=== PATIENT | female | born 1990 | race Caucasian/White ===

== ENCOUNTER 2017-05-02 10:16 | Emergency (ER) | payer MEDICAID, MEDICARE ==
[~2017-05-02] VITALS: Ht 154.9 cm; Wt 135.2 kg
[~2017-05-02 10:16] MED LIST: MEDR10TA9 PO; PREN-115 PO
[2017-05-02] MEDS ORDERED: WELLBURTIN (10:48)
[2017-05-02] MEDS ORDERED: PROZAC (10:48)
[2017-05-02] MEDS ORDERED: SINGULAIR (10:49)
[2017-05-02] MEDS ORDERED: [UNRECOGNIZED DRUG - REMARK] (10:50)
[2017-05-02] MEDS ORDERED: AMOX500C2 PO (10:59)
[2017-05-02] MEDS ORDERED: CIPROFLOXACIN 500 MG (CIPRO) TABLET PO SCH (11:00)
--- NOTE | 2017-05-02 11:00 | ED Cough/URI ---
General Chief Complaint: Cough/Cold/Flu Symptoms Stated Complaint: SORE THROAT Nursing Triage Note: AMB TO ROOM C/O SORETHROAT Source: patient Exam Limitations: no limitations History of Present Illness Time seen by provider: 10:57 Initial Comments To ER with a sore throat for 3 days. No fevers. Mild cough. Patient states that she gets strep throat frequently. Additionally, her closest family member had a sputum culture showing Neisseria meningitidis here in the emergency room within the past week and patient has not yet received prophylactic treatment. She denies headache or neck stiffness. Timing/Duration: constant Severity/Quality: moderate Associated Symptoms: cough, sore throat Allergies and Home Medications Allergies Uncoded Allergies: DECONGESTANT (Adverse Reaction, FEELS LIKE BUGS CRAWLING ON SKIN, 03/06/12) Home Medications [Muscle Rexlant] , (Reported) [Prozac] , (Reported) [Singulair] , (Reported) [Wellburtin] , (Reported) Constitutional: see HPI EENTM: see HPI, other (left tympanic membrane is erythematous) Respiratory: see HPI, cough Cardiovascular: no symptoms reported Genitourinary: no symptoms reported Musculoskeletal: no symptoms reported Skin: no symptoms reported Psychiatric/Neurological: No Symptoms Reported Hematologic/Lymphatic: No Symptoms Reported Past Owbdlek-Ianqsb-Dtmlay Hx Patient Social History Alcohol Use: Denies Use Recreational Drug Use: No Smoking Status: Never a Smoker Recent Foreign Travel: No Contact w/Someone Who Travel: No Recent Infectious Disease Expo: Yes (MENINGITIS 04/2017) Surgeries History of Surgeries: Yes Surgeries: Tonsillectomy Respiratory History of Respiratory Disorde: Yes Respiratory Disorders: Asthma Musculoskeletal History of Musculoskeletal Dis: Yes (NEVORUS LEGS. ) Psychosocial Behavioral Health Disorders: Anxiety, Bipolar, Depression Physical Exam Vital Signs Vital Sign - Last 12Hours 05/02/17 10:20 Temp 98.8 Pulse 93 Resp 18 B/P (MAP) 100/68 (79) Pulse Ox 98 Capillary Refill : Less Than 3 Seconds General Appearance: WD/WN, no apparent distress Eyes: Bilateral Eye Normal Inspection, Bilateral Eye PERRL, Bilateral Eye EOMI HEENT: PERRL/EOMI, normal ENT inspection, No pharyngeal erythema Neck: non-tender, full range of motion, other (no nuchal rigidity) Respiratory: no respiratory distress, no accessory muscle use Cardiovascular: regular rate, rhythm, no murmur Gastrointestinal: normal bowel sounds, non tender, soft Neurologic/Psychiatric: alert, normal mood/affect, oriented x 3 Skin: normal color, warm/dry Progress/Results/Core Measures Suspected Sepsis Recent Fever Within 48 Hours: No Infection Criteria Present: None New/Unexplained Altered Menta: No Sepsis Screen: No Definite Risk Sepsis Diagnosis: SIRS Temperature:98.8 Pulse: 93 Respiratory Rate: 18 Blood Pressure 100 /68 Mean: 79 Results/Orders My Orders Orders - CJ CONNER APRN Rapid Strep A Screen (05/02/17 10:56) Ciprofloxacin Tablet (Cipro Tablet) (05/02/17 11:00) Vital Signs/I&O Vital Sign - Last 12Hours 05/02/17 10:20 Temp 98.8 Pulse 93 Resp 18 B/P (MAP) 100/68 (79) Pulse Ox 98 Capillary Refill : Less Than 3 Seconds Blood Pressure Mean: 79 Departure Impression Impression: Primary Impression: Otitis media Additional Impressions: Pharyngitis recent exposure to Neisseria meningitidis Disposition: 01 HOME, SELF-CARE Condition: Stable Departure-Patient Inst. Decision time for Depature: 10:59 Referrals: NO,LOCAL PHYSICIAN (PCP/Family) Primary Care Physician Patient Instructions: Ear Infections (Otitis Media), Viral Pharyngitis Add. Discharge Instructions: 1. Antibiotics as directed for the ear infection 2. Return to ER for any concerns 3. See her doctor next week All discharge instructions reviewed with patient and/or family. Voiced understanding. Scripts Amoxicillin (Amoxicillin) 500 Mg Capsule 500 MG PO TID, #21 CAP Prov: CJ CONNER APRN 05/02/17 CJ CONNER APRN May 02, 2017 11:00
[2017-05-02 11:45] VITALS: BP 100/68
== END 2017-05-02 11:41 | disposition home or self-care (01) ==
LOC: EDUNIT# 10:16 → ER 10:19
DX: J02.9 Acute pharyngitis, unspecified (principal); H66.90 Otitis media, unspecified, unspecified ear; F41.9 Anxiety disorder, unspecified; F31.9 Bipolar disorder, unspecified; J45.909 Unspecified asthma, uncomplicated; Z20.811 Contact with and (suspected) exposure to meningococcus; Z90.89 Acquired absence of other organs
CPT/HCPCS: 87430; 99283

== ENCOUNTER 2019-10-29 08:53 | Outpatient (RCR) | payer MEDICAID ==
[~2019-10-29] VITALS: Ht 155 cm; Wt 125.0 kg
[~2019-10-29 08:53] MED LIST changes: +ALB0.5V INH; +AMOX500C2 PO; +LIRA3PEN SQ; +PROZAC; +RT-ALBUINH IH; +SINGULAIR; +SPIR100T4 PO; +WELLBURTIN; +[UNRECOGNIZED DRUG - REMARK]
[2019-11-02] MEDS ORDERED: HYDR-4227 PO (09:21)
== END 2019-10-29 14:24 | disposition home or self-care (01) ==
LOC: PREOP 08:53
PROVIDERS: ATTEND Surgery
DX: Z01.818 Encounter for other preprocedural examination (principal); Z11.59 Encounter for screening for other viral diseases; K80.20 Calculus of gallbladder without cholecystitis without obstruction
CPT/HCPCS: 87635

== ENCOUNTER → 2020-08-05 | Outpatient (CLI) | payer MEDICAID ==
[~2020-08-05] MED LIST changes: +HYDR-4227 PO
== END ==
LOC: LAB 12:36
PROVIDERS: ATTEND Obstetrics & Gynecology
DX: Z01.89 Encounter for other specified special examinations (principal)
CPT/HCPCS: 36415; 82670

== ENCOUNTER 2022-07-19 18:39 | Outpatient (CLI) | payer MEDICAID ==
[~2022-07-19 18:39] MED LIST changes: +ALBU8.5H6 IH; -RT-ALBUINH IH
== END 2022-07-20 06:15 | disposition home or self-care (01) ==
LOC: SLEEP 18:39
PROVIDERS: ATTEND Pediatrics
DX: G47.33 Obstructive sleep apnea (adult) (pediatric) (principal)
CPT/HCPCS: 95810

== ENCOUNTER 2022-12-24 21:36 | Emergency (ER) | payer MEDICAID ==
[~2022-12-24] VITALS: Ht 155 cm; Wt 128.4 kg
[2022-12-24 21:40] VITALS: BP 128/78
[2022-12-24] MEDS ORDERED: TR1C15 (21:45)
[2022-12-24] MEDS ORDERED: ERGO1250 (21:45)
[2022-12-24] MEDS ORDERED: NF-CLIN1% (21:45)
[2022-12-24] MEDS ORDERED: FLUO40CA (21:45)
--- NOTE | 2022-12-24 21:58 | ED General ---
General Chief Complaint: Bite-Animal/Human/Insect Stated Complaint: JOINTS HURT|POSS SPIDER BITE Nursing Triage Note: raised red area to right thigh pt reports possible spider bite 12/23/22. reports generalized joint pain today. Source of Information: Patient Exam Limitations: No Limitations History of Present Illness Date Seen by Provider: Dec 24, 2022 Time Seen by Provider: 21:45 Initial Comments Here with report of probable insect bite to the area of the leg just above the right knee and her aspect. Noted this morning. States she was working in the garden yesterday and is concerned about a spider bite. It is approximately 3 cm reddened and indurated [place] without red streaks or pustule. Denies other areas of bites. States that she feels a little achy and feels hot. She has been taken Tylenol and ibuprofen. She came because family members were concerned about spider bite and wanted her to be seen. Denies breathing problems, vomiting, weakness or other concerns. Timing/Duration: 24 Hours Severity: Mild Associated Systoms: No Shortness of Air, No Weakness Allergies and Home Medications Allergies Uncoded Allergies: DECONGESTANT (Adverse Reaction, Unknown, FEELS LIKE BUGS CRAWLING ON SKIN, 11/02/19) Patient Home Medication List Home Medication List Reviewed: Yes Clindamycin Phos (Clindamycin Phosphate) 1 % Lotion, (Reported) Entered as Reported by: VICKEY ZAMORA on 12/24/222144 Last Action: New Order Ergocalciferol (Vitamin D2) (Vitamin D2) 1,250 Mcg (99475 Unit) Capsule, (Reported) Entered as Reported by: VICKEY ZAMORA on 12/24/222144 Last Action: New Order Fluoxetine HCl (Fluoxetine HCl) 40 Mg Capsule, (Reported) Entered as Reported by: VICKEY ZAMORA on 12/24/222144 Last Action: New Order Triamcinolone Acet (Triamcinolone Acetonide 0.1% Cream) 0.1 % Cr, (Reported) Entered as Reported by: VICKEY ZAMORA on 12/24/222144 Last Action: New Order Discontinued Medications Albuterol Sulfate (Ventolin Hfa) 1 Puff Puff, 2 PUFF IH Q6H PRN for WHEEZING, (Reported) Discontinued Reason: No Longer Taking Entered as Reported by: MACY MONTEZ on 10/27/19 1350 Last Action: Discontinued Albuterol Sulfate (Albuterol Sulfate) 2.5 Mg/0.5 Ml Vial.neb, 2.5 MG INH TID PRN for SHORTNESS OF BREATH, (Reported) Discontinued Reason: No Longer Taking Entered as Reported by: MACY MONTEZ on 10/27/191349 Last Action: Discontinued Hydrocodone/Acetaminophen ([place] 7.5-325 Tablet) 1 Each Tablet, 1-2 TAB PO Q4H Discontinued Reason: No Longer Taking Prescribed by: SHARON HURD on 11/02/19 0921 Last Action: Discontinued Liraglutide (Saxenda) 3 Mg/0.5 Ml Pen.injctr, 3 MG SQ DAILY, (Reported) Discontinued Reason: No Longer Taking Entered as Reported by: MACY MONTEZ on 10/27/191349 Last Action: Discontinued Spironolactone (Spironolactone) 100 Mg Tablet, 100 MG PO DAILY, (Reported) Discontinued Reason: No Longer Taking Entered as Reported by: MACY MONTEZ on 10/27/191349 Last Action: Discontinued Review of Systems Review of Systems Constitutional: see HPI; No chills, No fever; other (Feels hot) EENTM: No nose congestion Respiratory: No short of breath Gastrointestinal: No abdominal pain, No nausea, No vomiting Genitourinary: No dysuria; frequency Musculoskeletal: joint pain Skin: see HPI, change in color Past Uaeipvm-Isrerl-Mrxkuh Hx Patient Social History Tobacco Use?: Yes Substance use?: Yes Substance type: Marijuana Alcohol Use?: Yes Alcohol Frequency: Once in a while Pt feels they are or have been: No Immunizations Up To Date PED Vaccines UTD: No First/Initial COVID19 Vaccinat: x2 Seasonal Allergies Seasonal Allergies: Yes Past Medical History Surgery/Hospitalization HX: anxiety, t/a, cholecystectomy, bmt Surgeries: Yes (bmt) Adenoidectomy, Tonsillectomy Respiratory: Yes Asthma Cardiac: No Neurological: No Genitourinary: No Gastrointestinal: Yes Gall Bladder Disease, Irritable Bowel Musculoskeletal: No Endocrine: No HEENT: No Cancer: No Psychosocial: Yes Anxiety, Bipolar, Depression Integumentary: No Blood Disorders: No Family Medical History Reviewed Nursing Family Hx Physical Exam Vital Signs Vital Signs - First Documented 12/24/22 21:40 Temp 37.0 Pulse 96 Resp 18 B/P (MAP) 128/78 (95) Pulse Ox 98 O2 Delivery Room Air Capillary Refill : Less Than 3 Seconds Height, Weight, BMI Height: 5'1.00" Weight: 298lbs. oz. [id number]; 53.00 BMI Method:Stated General Appearance: No Apparent Distress, WD/WN Respiratory: Lungs Clear, Normal Breath Sounds Cardiovascular: Regular Rate, Rhythm, No Murmur Neurologic/Psychiatric: Alert, Oriented x3 Skin: Warm/Dry, Other (3 x 3 cm area of redness and induration to the area just above the right knee medial aspect without central core or pustule. No obvious fluctuance and no red streaks. Area consistent with insect bite or sting.) Progress/Results/Core Measures Suspected Sepsis SIRS Temperature: Pulse: 96 Respiratory Rate: 18 Blood Pressure 128 /78 Mean: 95 Results/Orders Vital Signs/I&O 12/24/22 21:40 Temp 37.0 Pulse 96 Resp 18 B/P (MAP) 128/78 (95) Pulse Ox 98 O2 Delivery Room Air Capillary Refill : Less Than 3 Seconds Blood Pressure Mean: 95 Progress Note : Progress Note Seen and evaluated. No indication for further testing at this point. We did offer testing for urine as she previously had vaginal yeast infection and has had some frequency of urination but she is following up with her doctor and states she will follow-up with them for that. I did discuss spider bites and possible courses that could occur as well as return precautions and OTC instructions. Discharged home with return precautions. Patient verbalized understanding of instructions and agreement with plan. Departure Impression Primary Impression: Insect bites Qualified Codes: S80.261A - Insect bite (nonvenomous), right knee, initial encounter; W57.XXXA - Bitten or stung by nonvenomous insect and other nonvenomous arthropods, initial encounter Disposition: HOME, SELF-CARE Condition: Stable Departure-Patient Inst. Decision time for Depature: 21:56 Referrals: [facility] (PCP/Family) Primary Care Physician Patient Instructions: Insect Bites and Stings (DC), Spider bites Add. Discharge Instructions: All discharge instructions reviewed with patient and/or family. Voiced understanding. You may take ibuprofen 600 mg every 8 hours as needed for pain or fever. You may take Tylenol 1000 mg every 6-8 hours as needed for pain or fever. You may use topical antibiotic ointment cream plus pain relief to area of concern 2-3 times daily. You may also use topical hydrocortisone cream or Benadryl cream to the area of concern at the same time to reduce inflammation. Return for red streaks up the leg, increasing size specially with pustule, curtain appearing color changes going down the leg from the wound, weakness, breathing problems or other concerns as needed. Follow-up with your doctor in a few days for recheck. EMILY MARQUES MD Dec 24, 2022 21:58
== END 2022-12-24 22:00 | disposition home or self-care (01) ==
LOC: EDUNIT# 21:36 → ER 21:37
DX: S80.261A Insect bite (nonvenomous), right knee, initial encounter (principal); W57.XXXA Bitten or stung by nonvenomous insect and other nonvenomous arthropods, initial encounter; Y93.H2 Activity, gardening and landscaping
CPT/HCPCS: 99281